=== PATIENT | male | born 1980 | race Caucasian/White ===

== ENCOUNTER → 2016-09-01 | Outpatient (REF) | payer BC ==
[~2016-09-01] MED LIST: TRM50T PO
[2016-09-01 16:17] LABS: BASOPHILS % (AUTO) 0 % (0-2); EOSINOPHILS # (AUTO) 0.2 10^3uL; EOSINOPHILS % (AUTO) 1 % (0-4); LYMPHOCYTES # (AUTO) 2.7 X10^3; MEAN CORPUSCULAR HEMOGLOBIN 30.4 PG (26.0-34.0); MEAN CORPUSCULAR HGB CONC 35.2 g/dL (31.0-37.0); MEAN CORPUSCULAR VOLUME 86 FL (80-100); MEAN PLATELET VOLUME 10.4 FL (6.0-9.5); MONOCYTES # (AUTO) 0.9 X10^3; MONOCYTES % (AUTO) 6 % (3-11); NEUTROPHILS # (AUTO) 9.8 X10^3; NEUTROPHILS % (AUTO) 72 % (51-67); PLATELET COUNT 321 10^3uL (150-450); WHITE BLOOD COUNT 13.63 10^3uL (4.0-11.0)
[2016-09-01 16:46] LABS: ALBUMIN 4.9 g/dL (3.4-5.0); ANION GAP 17.7 MEQ/L (3-15); CALCULATED IONIZED CALCIUM 4.2 mg/dL (3.8-4.6); TOTAL PROTEIN 8.2 g/dL (6.4-8.5)
[2016-09-01 17:10] LABS: BILIRUBIN,URINE Negative (Negative); CLARITY,URINE Clear; GLUCOSE, URINE (UA) Negative (Negative); LEUKOCYTE ESTERASE, URINE Negative (Negative); UROBILINOGEN,URINE 0.2 mg/dL (0.2-1.0)
[2016-09-01 17:41] LABS: COLOR,URINE Dark Yellow
[2016-09-01 18:00] LABS: RBC,URINE 50-100 /HPF; URINE CENTRIFUGED VOLUME 12 mL
== END ==
LOC: LAB 15:57
PROVIDERS: ATTEND Nurse Practitioner Family
DX: I10 Essential (primary) hypertension (principal); E78.2 Mixed hyperlipidemia
CPT/HCPCS: 80053; 80061; 81003; 81015; 85025

== ENCOUNTER → 2016-09-05 | Outpatient (CLI) | payer BC ==
--- NOTE | 2016-09-05 13:02 | Diagnostic Imaging Report ---
PROCEDURE: CT abdomen and pelvis with contrast. TECHNIQUE: Multiple contiguous axial images were obtained through the abdomen and pelvis after administration of intravenous contrast. INDICATION: Microscopic hematuria. COMPARISON: August 15, 2008. FINDINGS: The visualized lung bases are clear. The liver is unremarkable. The spleen is unremarkable. The adrenal glands are unremarkable. The pancreas is unremarkable. The right kidney and right ureter are unremarkable. Two calculi are present within the left kidney. These are within the left mid kidney measuring up to 6 mm. No resulting hydronephrosis. The left kidney and left ureter are otherwise unremarkable. The gallbladder is unremarkable. No aneurysmal dilatation of the abdominal aorta. The appendix is unremarkable. Tiny fat-containing umbilical hernia. The urinary bladder is unremarkable. No bowel obstruction or pneumatosis. No significant adenopathy, free air, or free fluid within the abdomen or pelvis. No acute osseous abnormality. IMPRESSION: Two nonobstructing left renal calculi. Otherwise, essentially unremarkable examination. Dictated by: Dictated on workstation # [id number]
== END ==
LOC: RAD 10:12
PROVIDERS: ATTEND Nurse Practitioner Family
DX: R31.29 Other microscopic hematuria (principal); N20.0 Calculus of kidney
CPT/HCPCS: 74177; 87088; Q9967